=== PATIENT | male | born 1980 | race Native Hawaiian/Other Pacific Islander ===

== ENCOUNTER 2016-12-16 19:39 | Emergency (ER) | payer OTHER ==
[~2016-12-16] VITALS: Ht 182.9 cm; Wt 113.4 kg
[2016-12-16 20:26] LABS: PLATELET COUNT 260 K/uL (142-355)
[2016-12-16 20:34] LABS: POTASSIUM 3.6 mmol/L (3.6-5.2)
[2016-12-16 20:44] LABS: PARTIAL THROMBOPLASTIN TIME 24.2 SECONDS (24.5-33.6)
[2016-12-16 22:11] VITALS: BP 131/62; TEMP 98.2
== END 2016-12-16 22:12 | disposition home or self-care (01) ==
LOC: ED 19:39
PROVIDERS: Emergency Medicine
DX: R07.89 Other chest pain (principal); S29.011A Strain of muscle and tendon of front wall of thorax, initial encounter
CPT/HCPCS: 80053; 82550; 82553; 84484; 85027; 85610; 85730; 93005; 99284

== ENCOUNTER 2017-09-12 21:22 | Emergency (ER) | payer OTHER ==
[~2017-09-12] VITALS: Ht 182.9 cm; Wt 114.8 kg
[2017-09-12 21:27] VITALS: BP 158/80; TEMP 98.5
[2017-09-12 22:22] LABS: PLATELET COUNT 265 K/uL (142-355)
[2017-09-12 22:31] LABS: POTASSIUM 3.8 mmol/L (3.6-5.2)
== END 2017-09-12 23:45 | disposition home or self-care (01) ==
LOC: ED 21:22
DX: R07.89 Other chest pain (principal); F14.10 Cocaine abuse, uncomplicated
CPT/HCPCS: 36415; 80053; 80307; 81000; 82550; 82553; 84484; 85027; 93005; 99284; G0479; J1885; J2405

== ENCOUNTER 2021-08-08 15:33 | Emergency (ER) | payer OTHER ==
[~2021-08-08] VITALS: Ht 182.9 cm; Wt 104.3 kg
[2021-08-08 15:40] VITALS: BP 127/80; TEMP 98.1
== END 2021-08-08 17:13 | disposition home or self-care (01) ==
LOC: ED 15:33
PROC: 2W38X1Z Immobilization of Right Upper Extremity using Splint (ICD-10-PCS; principal; 2021-08-08)
DX: S52.124A Nondisplaced fracture of head of right radius, initial encounter for closed fracture (principal); W01.0XXA Fall on same level from slipping, tripping and stumbling without subsequent striking against object, initial encounter; Y92.89 Other specified places as the place of occurrence of the external cause
CPT/HCPCS: 99283

== ENCOUNTER 2021-12-30 09:32 | Emergency (ER) | payer OTHER ==
[~2021-12-30] VITALS: Ht 182.9 cm; Wt 104.3 kg
[2021-12-30 09:48] VITALS: BP 130/75; TEMP 98.1
[2021-12-30 10:39] LABS: PLATELET COUNT 241 K/uL (142-355)
[2021-12-30 10:53] LABS: POTASSIUM 5.2 mmol/L (3.6-5.2)
== END 2021-12-30 12:29 | disposition home or self-care (01) ==
LOC: ED 09:32
PROVIDERS: Emergency Medicine
DX: R06.02 Shortness of breath (principal)
CPT/HCPCS: 80053; 81000; 83880; 84484; 85027; 85610; 99283